=== PATIENT | male | born 1970 | race Caucasian/White ===

== ENCOUNTER 2020-01-14 08:36 | Emergency (ER) | payer BC ==
[~2020-01-14] VITALS: Ht 170.2 cm; Wt 80.6 kg
[2020-01-14 08:44] VITALS: BP 175/102
[2020-01-14] MEDS ORDERED: PRED20TA PO (08:47)
[2020-01-14] MEDS ORDERED: VALA100031 PO (08:47)
[2020-01-14] MEDS ORDERED: ERYT1OIN6 RIGHTEYE (08:48)
== END 2020-01-14 08:54 | disposition home or self-care (01) ==
LOC: ER 08:37
DX: R13.10 Dysphagia, unspecified (principal); G51.0 Bell's palsy; Z88.5 Allergy status to narcotic agent; Z88.8 Allergy status to other drugs, medicaments and biological substances; Z79.899 Other long term (current) drug therapy
CPT/HCPCS: 93005; 99283